=== PATIENT | male | born 1985 | race Caucasian/White ===

== ENCOUNTER 2018-01-25 17:22 | Emergency (ER) | payer OTHER ==
[~2018-01-25] VITALS: Ht 180.3 cm; Wt 79.4 kg
[~2018-01-25 17:22] MED LIST: ACETAMINOPHEN-1 EAC1 PO; ACTICIN 5% CREA60 G1 TOP; AUGMENTIN 500-1 EACH PO; BACTRIM DS TAB1 EACH PO; BENADRYL25 MG PO; CLEOCIN HCL150 MG PO; IBUPROFEN 800800 MG PO; LORTAB 5 MG/5001 TA1 PO; MEDROLDOSEPACK PO; MUSCLE RELAXER; NAPROSYN500 MG PO; NOHOMEMEDICATIONS; NORCO 5-325 TA1 EACH PO; PENICILLIN VK500 MG PO; ROBAXIN 750 MG750 MG PO; TRAMADOL 50 MG50 MG PO; VEETIDS 500500 MG PO
[2018-01-25 17:53] LABS: ABSOLUTE BASOPHILS 0.1 thou/uL (0.0-0.2); ABSOLUTE EOSINOPHILS 0.3 thou/uL (0.0-0.7); ABSOLUTE LYMPHOCYTES 2.1 thou/uL (0.8-5.3); ABSOLUTE MONOCYTES 0.7 thou/uL (0.0-1.2); ABSOLUTE NEUTROPHILS 4.1 thou/uL (1.6-8.1); EOSINOPHILS 4.1 %; HEMATOCRIT 43.2 % (42.0-52.0); HEMOGLOBIN 14.5 gm/dL (14.0-18.0); LYMPHOCYTES 28.5 %; MCH 30.9 pg (26.0-34.0); MCHC 33.5 g/dL (28.0-37.0); MCV 92.1 fL (80.0-100.0); MONOCYTES 9.7 %; NUCLEATED RBCS 0 /100WBC; PLATELET COUNT* 278 thou/uL (150-400); POLYS 56.7 %; RBC 4.69 mil/uL (4.50-6.00); RDW-CV 13.4 % (10.5-14.5); WBC 7.3 thou/uL (4.0-11.0)
[2018-01-25 18:13] LABS: ANION GAP 10 mmol/L (7-16); BUN 21 mg/dL (7-18); CALCIUM 9.1 mg/dL (8.5-10.1); CHLORIDE 105 mmol/L (98-107); CO2 25 mmol/L (21-32); CREATININE 1.2 mg/dL (0.6-1.3); GLUCOSE 74 mg/dL (70-99); POTASSIUM 3.6 mmol/L (3.5-5.1); SODIUM 140 mmol/L (136-145)
[2018-01-25 18:19] LABS: ALBUMIN 3.6 g/dL (3.4-5.0); ALKALINE PHOSPHATASE 99 U/L (46-116); SGOT 41 U/L (15-37); SGPT 47 U/L (30-65); TOTAL BILIRUBIN 0.4 mg/dL (<0.1-1.0); TOTAL PROTEIN 7.1 g/dL (6.4-8.2); TROPONIN-I LEVEL <0.06 ng/mL (<0.06)
[2018-01-25 18:58] LABS: URINE BILIRUBIN NEGATIVE (Negative); URINE BLOOD NEGATIVE (Negative); URINE CLARITY CLEAR; URINE COLOR YELLOW; URINE GLUCOSE-RANDOM NEGATIVE (Negative); URINE KETONES NEGATIVE (Negative); URINE LEUKOCYTES-REFLEX NEGATIVE (Negative); URINE NITRITE-REFLEX NEGATIVE (Negative); URINE PROTEIN NEGATIVE (Negative); URINE SPECIFIC GRAVITY 1.015 (1.005-1.030); URINE UROBILINOGEN 0.2 E.U./dl (0.2-1.0)
[2018-01-25 19:16] LABS: AMP/METHAMP POSITIVE (Negative); BARBITURATES Negative (Negative); BENZODIAZEPINES Negative (Negative); COCAINE Negative (Negative); METHADONE Negative (Negative); OPIATES Negative (Negative); PCP Negative (Negative); THC POSITIVE (Negative)
[2018-01-25 19:30] VITALS: BP 100/100
--- NOTE | 2018-01-26 10:47 | EKG ---
[place] [address] ELECTROCARDIOGRAM REPORT Name: ALBERT PERKINS Room: [facility]#: [id number] Admission: 01/25/18 Attend Phys: Discharge: 01/25/18 Date of : 83 Report #: [id number] THIS REPORT FOR: //name// [facility] ED Test Date: 2018-01-25 Test Time: 17:31:21 Pat Name: ALBERT PERKINS Department: Room: Gender: Rfid Developer: SURAJ Mattson : 1985 Requested By: Karla Ceja Order Number: [id number] MD: Josué Giron Measurements Intervals [place] Rate: 92 P: 79 NV: 138 QRS: 76 QRSD: 101 T: 63 QT: 343 QTc: 425 Interpretive Statements Sinus rhythm RSR' in V1 or V2, right VCD or RVH ST elev, probable normal early repol pattern Compared to ECG 07/26/2008 18:32:25 RSR' in V1 or V2 now present Electronically Signed On 01-26-2018 10:47:45 CDT by Josué Giron [email or web address] <ELECTRONICALLY SIGNED> By: Josué Giron MD, FACC 01/26/18 1047 1731 1731 Josué Giron MD, [facility] /EPI
== END 2018-01-25 19:32 | disposition left against medical advice (07) ==
LOC: M.ERS 17:22
PROVIDERS: Personal Emergency Response Attendant
DX: R07.9 Chest pain, unspecified (principal); F17.200 Nicotine dependence, unspecified, uncomplicated; F15.10 Other stimulant abuse, uncomplicated

== ENCOUNTER 2019-11-26 19:16 | Emergency (ER) | payer OTHER ==
[~2019-11-26] VITALS: Ht 180.3 cm; Wt 79.4 kg
[2019-11-26] MEDS ORDERED: AZITHROMYCIN 2250 MG PO (20:45)
[2019-11-26] MEDS ORDERED: PROAIR HFA8.5 GM INH (20:45)
[2019-11-26] MEDS ORDERED: MEDROLDOSEPACK PO (20:45)
[2019-11-26 21:37] VITALS: BP 142/86
--- NOTE | 2019-12-02 14:59 | EKG ---
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
== END 2019-11-26 21:37 | disposition home or self-care (01) ==
LOC: M.ERS 19:16
DX: J40 Bronchitis, not specified as acute or chronic (principal); F17.210 Nicotine dependence, cigarettes, uncomplicated

== ENCOUNTER 2019-12-30 05:30 | Emergency (ER) | payer OTHER ==
[~2019-12-30] VITALS: Ht 180.3 cm; Wt 77.1 kg
[~2019-12-30 05:30] MED LIST changes: +AZITHROMYCIN 2250 MG PO; +PROAIR HFA8.5 GM INH
[2019-12-30 05:35] VITALS: BP 126/78
[2019-12-30] MEDS ORDERED: AUGMENTIN 500-1 EACH PO (06:08)
[2019-12-30] MEDS ORDERED: HYDROCODON-ACE1 EAC7 PO (06:08)
== END 2019-12-30 06:21 | disposition home or self-care (01) ==
LOC: M.ERS 05:30
DX: L03.012 Cellulitis of left finger (principal); F17.210 Nicotine dependence, cigarettes, uncomplicated

== ENCOUNTER 2020-01-01 08:04 | Emergency (ER) | payer OTHER ==
[~2020-01-01] VITALS: Ht 180.3 cm; Wt 79.4 kg
[~2020-01-01 08:04] MED LIST changes: +HYDROCODON-ACE1 EAC7 PO
[2020-01-01] MEDS ORDERED: AZITHROMYCIN 2250 MG PO (08:35)
[2020-01-01] MEDS ORDERED: SUPRAX400 M1 PO (08:35)
[2020-01-01 08:58] VITALS: BP 112/91
== END 2020-01-01 09:00 | disposition home or self-care (01) ==
LOC: M.ERS 08:04
DX: Z20.2 Contact with and (suspected) exposure to infections with a predominantly sexual mode of transmission (principal); F17.210 Nicotine dependence, cigarettes, uncomplicated

== ENCOUNTER 2020-01-31 10:14 | Emergency (ER) | payer OTHER ==
[~2020-01-31] VITALS: Ht 180.3 cm; Wt 77.1 kg
[~2020-01-31 10:14] MED LIST changes: +SUPRAX400 M1 PO
[2020-01-31] MEDS ORDERED: AZITHROMYCIN 2250 MG PO (10:38)
[2020-01-31] MEDS ORDERED: SUPRAX400 M1 PO (10:38)
[2020-01-31 10:43] VITALS: BP 123/72
== END 2020-01-31 10:43 | disposition home or self-care (01) ==
LOC: M.ERS 10:14
DX: R36.9 Urethral discharge, unspecified (principal); Z20.2 Contact with and (suspected) exposure to infections with a predominantly sexual mode of transmission